=== PATIENT | male | born 1955 | race Hispanic/Latino ===

== ENCOUNTER 2016-03-14 14:17 | Outpatient (CLI) | payer MEDICARE ==
--- NOTE | 2016-03-14 18:21 | Magnetic Resonance Report ---
MR scan of the cranium was performed without contrast. Pulse sequences included: 1. T1 weighted sagittal and axial images without contrast 2. T2 weighted axial and coronal images 3. FLAIR axial images 4. Diffusion-weighted axial images 5. Apparent diffusion coefficient images Views of the posterior fossa showed the tonsils at the level of the foramen magnum. Cerebellar pontine angles were normal with normal seventh-eighth nerve complexes. Brainstem and cerebellum were normal. The ventricular system showed mild dilation but no distortion. Images of the hemispheres showed mild atrophy over the parietal regions more so on the left. Mild temporal atrophy was also seen. No other areas of increased or decreased signal were seen. Sinuses, flow voids in the [place], orbits, pituitary and basal ganglia were normal. Impression: Abnormal MR scan of the cranium without contrast. 1. 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 bitemporal atrophy
== END 2016-03-14 14:18 | disposition home or self-care (01) ==
LOC: MRI 14:17
PROVIDERS: ATTEND Specialist
DX: B05.0 Measles complicated by encephalitis (principal); I51.7 Cardiomegaly; G31.89 Other specified degenerative diseases of nervous system
CPT/HCPCS: 70551